=== PATIENT | female | born 2000 | race Caucasian/White ===

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

== ENCOUNTER 2021-06-25 14:57 | Emergency (ER) | payer BC, OTHER ==
[~2021-06-25] VITALS: Ht 160 cm; Wt 86.2 kg
[2021-06-25] MEDS ORDERED: AZIT500T66 PO (15:34)
[2021-06-25] MEDS ORDERED: PROM1SOL4 PO (15:34)
[2021-06-25 15:37] VITALS: BP 131/45
== END 2021-06-25 15:54 | disposition home or self-care (01) ==
LOC: ER 14:57
DX: U07.1 COVID-19 (principal); J20.9 Acute bronchitis, unspecified
CPT/HCPCS: 36415; 71045; 87426